=== PATIENT | female | born 1950 | race Caucasian/White ===

== ENCOUNTER → 2017-09-14 | Outpatient (CLI) | payer MEDICARE, BC ==
--- NOTE | 2017-09-15 07:51 | US ---
EXAM DESCRIPTION: Abdomen,Complete: Ultrasound. CLINICAL HISTORY: ABD WALL MASS. Left upper quadrant. Palpable for one year. No growth and not tender. COMPARISON: None Available. TECHNIQUE: Transcutaneous scanning: Two-dimensional and Doppler modes. FINDINGS: Slightly hypoechoic mass with moderately defined borders in the abdominal wall at the location of the lump. Dimensions are 10.7 x 8.4 x 3.6 cm. Nonvascular. No large calcifications, no fluid collections. 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 Consider follow-up imaging only if area becomes painful or enlarges. Electronically signed by: Jorge Andersen MD 09/15/2017 7:50 AM CDT
== END | disposition home or self-care (01) ==
LOC: US 10:12
PROVIDERS: ATTEND Family Medicine
DX: R19.09 Other intra-abdominal and pelvic swelling, mass and lump (principal); D50.8 Other iron deficiency anemias; R53.82 Chronic fatigue, unspecified; E55.9 Vitamin D deficiency, unspecified; Z00.01 Encounter for general adult medical examination with abnormal findings; D51.3 Other dietary vitamin B12 deficiency anemia

== ENCOUNTER → 2019-04-25 | Outpatient (CLI) | payer MEDICARE, BC ==
--- NOTE | 2019-04-25 14:52 | MRI ---
Study: MRI of the Left Knee. Indication: OSTEOARTHRITIS Technique: Multiplanar, multi sequence MRI of the left knee was obtained without intravenous contrast. Comparison: None. Findings: ACL and PCL intact. Both the MCL and FCL are slightly thickened and lax with mild increased internal PD signal. In addition, there is mild thickening of the distal IT band. These findings can be seen in the setting of the osteoarthritic knee. No acute tear defect of the medial or lateral collateral structures. High-grade radial tearing posterior root attachment medial meniscus with near complete transection. Body extruded by 4 mm. Patchy irregular grade 3 and mild grade 4 chondrosis throughout the medial compartment with mild subchondral marrow change at the medial most aspects. Irregular free edge tearing throughout the posterior horn lateral meniscus. Irregular grade 3-4 chondral loss of the posterior aspects of the lateral tibial plateau with grade 2/3 changes of the lateral femoral condyle. Tendinosis quadriceps tendon insertion and patellar tendon origin without tear. Patella normally located. Patchy grade 3/4 chondral fibrillation superior aspects lateral patellar facet with cortical remodeling and subchondral cystic change. Large knee effusion. No acute fracture. Impression: High-grade radial tearing posterior root attachment medial meniscus. Radial free edge tearing posterior horn lateral meniscus. 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 Large knee effusion. Additional findings as above. Electronically signed by: Bk Navarrete MD 04/25/2019 2:50 PM CDT
== END ==
LOC: MRI 07:14
PROVIDERS: ATTEND Orthopaedic Surgery
DX: S83.242A Other tear of medial meniscus, current injury, left knee, initial encounter (principal); S83.282A Other tear of lateral meniscus, current injury, left knee, initial encounter; M22.42 Chondromalacia patellae, left knee